=== PATIENT | female | born 1970 | race Caucasian/White ===

== ENCOUNTER 2018-09-03 18:31 | Emergency (ER) | payer OTHER, BC, MEDICAID | END 2018-09-03 19:13 | disposition home or self-care (01) | LOC: FTE 19:13 | DX: J02.9 Acute pharyngitis, unspecified (principal); F17.210 Nicotine dependence, cigarettes, uncomplicated; J44.9 Chronic obstructive pulmonary disease, unspecified; R49.0 Dysphonia | CPT/HCPCS: 99282; Z7502 ==